=== PATIENT | male | born 1965 | race Caucasian/White ===

== ENCOUNTER 2024-09-21 12:58 | Outpatient (CLI) | payer OTHER | END 2024-09-21 12:59 | LOC: MRI 12:58 | PROVIDERS: ATTEND Specialist | DX: M47.812 Spondylosis without myelopathy or radiculopathy, cervical region (principal); M50.123 Cervical disc disorder at C6-C7 level with radiculopathy; Z98.890 Other specified postprocedural states; G95.29 Other cord compression | CPT/HCPCS: 72156 ==